=== PATIENT | male | born 1985 | race African-American/Black ===

== ENCOUNTER 2018-09-24 11:51 | Inpatient (IN) | payer OTHER | END 2018-09-27 17:30 | disposition other institution (70) | LOC: TELE-WESTW 09-27 05:21 → ER 11:51 → TELE 12:29 → ICU WEST 14:15 | PROC: 0JH606Z Insertion of Pacemaker, Dual Chamber into Chest Subcutaneous Tissue and Fascia, Open Approach (ICD-10-PCS; principal; ~2018-09-24) | PROC: B5171ZZ Fluoroscopy of Left Subclavian Vein using Low Osmolar Contrast (ICD-10-PCS; ~2018-09-24) | DX: I44.2 Atrioventricular block, complete (principal); Z95.2 Presence of prosthetic heart valve; Z95.0 Presence of cardiac pacemaker ==

== ENCOUNTER 2018-10-10 13:07 | Inpatient (IN) | payer OTHER | END 2018-10-12 15:30 | LOC: TELE-E-ADS 19:26 → ER 13:07 → TELE 15:27 → TELE-E-ADS 19:40 | DX: R07.89 Other chest pain (principal); Z95.2 Presence of prosthetic heart valve ==